=== PATIENT | female | born 1945 | race Caucasian/White ===

== ENCOUNTER 2017-07-18 16:24 | Emergency (ER) | payer OTHER ==
[~2017-07-18] VITALS: Ht 167.6 cm; Wt 90.7 kg
[~2017-07-18 16:24] MED LIST: ECOTRIN325 MG PO; HYDROCODONE-AP1 EAC6 PO; IRBESARTAN300 MG PO; LABETALOL HCL200 MG PO; LOSARTAN POTAS100 MG PO; NORVASC5 MG PO; PROTONIX40 M1 PO; SENNA8.6 MG PO; TOPROL XL100 MG PO; ZOLOFT50 MG PO
[2017-07-18 18:59] LABS: ABSOLUTE NEUTROPHILS 3.9 thou/uL (1.4-8.2); BASOPHILS 0.9 % (0.0-2.0); EOSINOPHILS 1.5 % (0.0-3.0); HEMATOCRIT 41.1 % (37.0-47.0); HEMOGLOBIN 13.8 gm/dL (12.0-15.0); LYMPHOCYTES 41.7 % (24.0-44.0); MCH 28.5 pg (26.0-34.0); MCHC 33.6 g/dL (28.0-37.0); MCV 84.6 fL (80.0-100.0); MONOCYTES 11.3 % (1.0-8.0); PLATELET COUNT 239 thou/uL (150-400); POLYS 44.6 % (36.0-66.0); RBC 4.86 mil/uL (4.20-5.00); WBC 8.8 thou/uL (4.0-11.0)
[2017-07-18 19:08] LABS: CALCIUM 9.7 mg/dL (8.5-10.1); CREATININE 1.2 mg/dL (0.6-1.0); POTASSIUM 3.3 mmol/L (3.5-5.1)
[2017-07-18 19:16] LABS: ALBUMIN 3.7 g/dL (3.4-5.0); TOTAL BILIRUBIN 0.3 mg/dL (<0.1-1.0); TOTAL PROTEIN 7.8 g/dL (6.4-8.2); TROPONIN-I 0.09 ng/mL (<0.06)
[2017-07-18 19:19] LABS: LARGE PLATELETS RARE
[2017-07-18] MEDS ORDERED: NORVASC5 MG PO (19:48)
[2017-07-18] MEDS ORDERED: KEFLEX500 M1 PO (19:48)
[2017-07-18] MEDS ORDERED: TOPROL XL100 MG PO (19:57)
[2017-07-18] MEDS ORDERED: VENTOLIN HFA INH8 GM INH (19:57)
[2017-07-18 20:28] VITALS: BP 193/102
== END 2017-07-18 20:30 | disposition home or self-care (01) ==
LOC: ER 16:24
PROVIDERS: Physician Assistant
DX: S91.312A Laceration without foreign body, left foot, initial encounter (principal); J40 Bronchitis, not specified as acute or chronic; I10 Essential (primary) hypertension; Z90.49 Acquired absence of other specified parts of digestive tract; Z90.710 Acquired absence of both cervix and uterus; W20.8XXA Other cause of strike by thrown, projected or falling object, initial encounter; Y93.89 Activity, other specified; Y92.89 Other specified places as the place of occurrence of the external cause; Y99.8 Other external cause status

== ENCOUNTER → 2017-08-14 | Outpatient (CLI) | payer OTHER ==
[~2017-08-14] MED LIST changes: +KEFLEX500 M1 PO; +VENTOLIN HFA INH8 GM INH
== END ==
LOC: CAT 06:59
DX: G31.9 Degenerative disease of nervous system, unspecified (principal)

== ENCOUNTER → 2018-06-03 | Outpatient (CLI) | payer OTHER | LOC: RAD 09:01 | DX: J92.9 Pleural plaque without asbestos (principal) ==

== ENCOUNTER → 2018-11-03 | Outpatient (CLI) | payer OTHER | LOC: RAD 09:23 | DX: M54.5 Low back pain (principal); I70.0 Atherosclerosis of aorta; Z96.641 Presence of right artificial hip joint; W19.XXXA Unspecified fall, initial encounter ==

== ENCOUNTER → 2018-12-15 | Outpatient (CLI) | payer OTHER | LOC: RAD 10:38 | DX: N63.10 Unspecified lump in the right breast, unspecified quadrant (principal); N63.20 Unspecified lump in the left breast, unspecified quadrant ==

== ENCOUNTER 2019-10-16 23:35 | Inpatient (IN) | payer OTHER ==
[~2019-10-16] VITALS: Ht 167.6 cm; Wt 119.1 kg
--- NOTE | ~2019-10-16 | EEG ---
[facility] [place] [address] ELECTROENCEPHALOGRAM Name: NEETA LAGUERRE Room #: 203-P [facility] IN M.R.#: [id number] Admission: 10/17/19 Attend Phys: Nilson Edmonds MD Discharge: Date of : 43 Report #: [id number] THIS REPORT FOR: //name// CC: Nilson Edmonds DATE OF SERVICE: 10/18/2019 This patient is being evaluated for the possibility of seizure. EEG was done by placing the electrodes by standard 10-20 system of electrode placement. Both referential and sequential montages were used for recording. Background activity in this patient's EEG is about 9 Hz and 30 microvolt. Photic stimulation is unremarkable. The patient became drowsy and that is associated with bilateral slowing and vertex sharp waves. Throughout the record, no active epileptiform activity was noticed. IMPRESSION: This patient's EEG does not demonstrate any active epileptiform activity. EEG does indicate mild intermixed slowing, which is a nonspecific finding, which can occur with drowsiness, dementia, effect of psychotropic medication, etc. Clinical correlation is recommended. By: 1421 1427 Blane Wright MD /nt
[2019-10-16 23:39] VITALS: BP 217/114
[2019-10-17] VITALS (22 sets, daily range): BP systolic 144–183; BP diastolic 48–104
[2019-10-17 00:05] LABS: ABSOLUTE NEUTROPHILS 7.1 thou/uL (1.4-8.2); BASOPHILS 0.8 % (0.0-2.0); EOSINOPHILS 0.5 % (0.0-3.0); HEMATOCRIT 45.4 % (37.0-47.0); HEMOGLOBIN 15.3 gm/dL (12.0-15.0); LYMPHOCYTES 19.5 % (24.0-44.0); MCH 28.9 pg (26.0-34.0); MCHC 33.6 g/dL (28.0-37.0); MCV 85.9 fL (80.0-100.0); MONOCYTES 3.8 % (1.0-8.0); PLATELET COUNT 246 thou/uL (150-400); POLYS 75.4 % (36.0-66.0); RBC 5.29 mil/uL (4.20-5.00); WBC 9.5 thou/uL (4.0-11.0)
[2019-10-17 00:21] LABS: APTT 24.7 Seconds (24.5-32.8); PROTIME 9.3 Seconds (9.3-11.4)
[2019-10-17 00:41] LABS: CALCIUM 8.8 mg/dL (8.5-10.1); CREATININE 1.3 mg/dL (0.6-1.0); POTASSIUM 3.7 mmol/L (3.5-5.1)
[2019-10-17 00:51] LABS: ALBUMIN 3.7 g/dL (3.4-5.0); TOTAL BILIRUBIN 0.6 mg/dL (<0.1-1.0); TOTAL PROTEIN 7.6 g/dL (6.4-8.2); TROPONIN-I 0.08 ng/mL (<0.06)
[2019-10-17] MEDS ORDERED: BYSTOLIC10 MG PO (01:05)
[2019-10-17 01:23] LABS: URINE BILIRUBIN NEGATIVE (Negative); URINE BLOOD NEGATIVE (Negative); URINE CLARITY CLEAR; URINE COLOR YELLOW; URINE GLUCOSE-RANDOM* TRACE (Negative); URINE KETONES NEGATIVE (Negative); URINE LEUKOCYTES-REFLEX NEGATIVE (Negative); URINE NITRITE-REFLEX NEGATIVE (Negative); URINE PROTEIN (DIPSTICK) TRACE (Negative); URINE SPECIFIC GRAVITY 1.015 (1.005-1.035)
--- NOTE | 2019-10-17 04:46 | NUR ---
ADM: PT ARRIVED FROM ED ARROUND 0300. ALERT AND ORIENTED. CARDENE GTT AT 1MG/HR. BP UPON ARRIVAL 169/90. OTHER VITALS STABLE. HELPED PT TRANSFER TO HER BED BY AMBULATION. NOTED EXTENSIVE WEAKNESS ESPECIALLY TO HER RIGHT SIDE. PT REPORTS HIGH REPLACEMENT TO THE RIGHT LEG, AND BOTH KNEE REPLACEMENTS. ALSO REPORTS OCCASIONAL NUMBNESS AND TINGLING IN THE RIGHT LEG. NOTED FECIAL DROOP AND SLURRED SPEECH, SCORING 5 ON NIH ASSESSMENT SCALE. ASSISTANT PROSECUTING ATTORNEY NOTIFIED ABOUT THE NIH SCORES, AND BP. PT STATES SHE WAS SO TIRED AND SLEEPY, COULDN'T SIGN CONSENT FORMS. SINUS ZACHARY ON THE MONITOR. DENIES CHEST PAIN OR SOB. MINIMAL NAUSEA DURING TRANSFER BUT NO VOMITING. DENIES PAIN. OTHER ASSESSMENTS DOCUMENTED. WILL CONTINUE TO MONITOR BP, ASSESS NIH SCORES PERIODICALLY. LIFETIME PARTNER MAYNOR VARMA UPDATED ABOUT PT STATE.
[2019-10-17 07:30] LABS: HEMATOCRIT 45.3 % (37.0-47.0); HEMOGLOBIN 14.8 gm/dL (12.0-15.0); MCH 28.4 pg (26.0-34.0); MCHC 32.7 g/dL (28.0-37.0); MCV 86.6 fL (80.0-100.0); RBC 5.23 mil/uL (4.20-5.00); RDW 14.2 % (10.5-14.5); WBC 9.2 thou/uL (4.0-11.0)
[2019-10-17 07:41] LABS: CALCIUM 8.8 mg/dL (8.5-10.1); CREATININE 1.1 mg/dL (0.6-1.0); POTASSIUM 3.8 mmol/L (3.5-5.1)
--- NOTE | 2019-10-17 10:22 | EKG ---
[facility] [place] [address] ELECTROCARDIOGRAM REPORT Name: NEETA LAGUERRE Room #: 203-P ADM IN M.R.#: [id number] Admission: 10/17/19 Attend Phys: Deven Wilson MD Discharge: Date of : 43 Report #: [id number] THIS REPORT FOR: cc: Nilson Edmonds MD, Neal A. MD Lundgren,Jonnathan Mcnamara MD [facility] ~ THIS REPORT FOR: //name// [facility] ED Test Date: 2019-10-16 Test Time: 23:57:33 Pat Name: NEETA LAGUERRE Department: Room: [facility] Gender: F Manager Of Software Development: RONNIE : 1945 Requested By: Nirmal Uribe Order Number: [id number] MD: Jonnathan Mendoza Measurements Intervals [place] Rate: 63 P: 33 IN: 134 QRS: 12 QRSD: 78 T: 15 QT: 445 QTc: 456 Interpretive Statements Sinus rhythm Early R wave progression No previous ECG available for comparison Electronically Signed On 10-17-2019 10:20:42 CDT by Jonnathan Mendoza [email or web address] <ELECTRONICALLY SIGNED> By: Jonnathan Mendoza MD, FACC 10/17/19 1020 [id number] [id number] Jonnathan Mendoza MD, [facility] /EPI
--- NOTE | 2019-10-17 19:11 | NUR ---
ASSUMMED PT CARE AT APPROXIMATELY 0700. PT A&O X4 AND DROWSY. ASSESSMENT CHARTED. FALL PRECAUTIONS IN PLACE. PT DENIES HAVING CHEST PAIN. PT DENIES HAVING SOB. PT STATED SHE HAD NAUSEA. PT RECEIVED ANTI-EMETICS. PT STATED ANTI-EMETICS HELPED RELIEVE NAUSEA. FOLLOWING CARDENE DRIP PROTOCOL. VITAL SIGNS STABLE. PT COMFORTABLE. ENCOURAGED PT TO EAT AND DRINK. PT HAS R HEMIPARESIS. EDUCATED PT ABOUT POC. PT STATED UNDERSTANDING AND DENIED HAVING FURTHER QUESTIONS. PT COMFORTABLE. PT DENIES HAVING FURTHER CONCERNS.
--- NOTE | 2019-10-18 02:59 | NUR ---
ASSESSMENTS CHARTED, MEDS GIVEN CHARTED. RESTING IN BED DURING SHIFT. SAYS SHE FEELS BETTER THAN YESTERDAY. RESIDUAL RIGHT SIDED WEAKNESS REMAINS FROM STROKE. BLOOD PRESSURE MAINTAINING WITHOUT IV DRIP SUPPORT. ALERT AND ORIENTED, SINUS ZACHARY ON TELEMETRY. ON 1 LITER NASAL CANULA. KHAN IN PLACE TO DEPENDENT DRAINAGE.
[2019-10-18 04:07] LABS: GLYCOHEMOGLOBIN (HGB A1C) 6.1 % (4.8-5.6)
[2019-10-18 05:25] VITALS: BP 156/84
[2019-10-18 06:03] LABS: HEMATOCRIT 43.1 % (37.0-47.0); HEMOGLOBIN 14.3 gm/dL (12.0-15.0); MCHC 33.2 g/dL (28.0-37.0); MCV 87.4 fL (80.0-100.0); RBC 4.93 mil/uL (4.20-5.00); RDW 14.2 % (10.5-14.5); WBC 10.9 thou/uL (4.0-11.0)
[2019-10-18 06:33] LABS: CALCIUM 8.7 mg/dL (8.5-10.1); CREATININE 1.2 mg/dL (0.6-1.0); POTASSIUM 3.3 mmol/L (3.5-5.1)
[2019-10-18 06:40] LABS: CHOLESTEROL 225 mg/dL (<200); HDL CHOLESTEROL 28 mg/dL (>40); LDL CHOLESTEROL 159 mg/dL (<100); TRIGLYCERIDE 193 mg/dL (<150); VLDL 39 mg/dL (<40)
[2019-10-18 06:59] LABS: SERUM ASSESSMENT Clear
[2019-10-18 08:30] VITALS: BP 147/80
[2019-10-18 11:20] VITALS: BP 166/77
--- NOTE | 2019-10-18 14:26 | 2DMMODE ---
[facility] [place] [address] 2 D/M-MODE ECHOCARDIOGRAM Name: NEETA LAGUERRE Room #: 203-P ADM IN M.R.#: [id number] Admission: 10/17/19 Attend Phys: Nilson Edmonds MD Discharge: Date of : 43 Report #: [id number] THIS REPORT FOR: cc: Nilson Edmonds MD, Neal A. MD Lammoglia, Francisco J. MD ~ ADDENDUM APPROVED REPORT Study performed: 10/18/2019 12:12:27 EXAM: Comprehensive 2D, Doppler, and color-flow Echocardiogram Patient Location: Bedside Room #: 203 Status: routine BSA: 2.21 HR: 50 bpm BP: 153/74 mmHg Rhythm: NSR Other Information Study Quality: Adequate Indications Hypertension/HDD Stroke Echo Enhancing Agent Indication: Rule out Shunt Agent(s) / Amount(s) Used: Agitated Saline 6 cc 2D Dimensions RVDd: 40.66 mm IVSd: 14.42 (7-11mm) LVOT Diam: 18.76 (18-24mm) LVDd: 51.22 mm PWd: 14.63 (7-11mm) Ascending Ao: 38.85 (22-36mm) LVDs: 41.11 (25-40mm) Aortic Root: 29.38 mm Volumes Left Atrial Volume (Systole) Single Plane 4CH: 73.94 mL Single Plane 2CH: 145.63 mL LA ESV Index: 54.00 mL/m2 Aortic Valve [facility] [place] [address] [place] [address] 2 D/M-MODE ECHOCARDIOGRAM Name: NEETA LAGUERRE Room #: 203-P [facility] IN ..#: [id number] Admission: 10/17/19 Attend Phys: Nilson Edmonds, Discharge: Date of : 43 Report #: [id number] AoV Peak Shun.: 2.04 m/s AO Peak Gr.: 16.71 mmHg LVOT Max P.06 mmHg AO Mean Gr.: 8.44 mmHg LVOT Mean P.04 mmHg AO V2 Mean: 1.35 m/s LVOT Max V: 1.33 m/s AO V2 VTI: 44.74 cm LVOT Mean V: 0.75 m/s NARINDER (VTI): 2.10 cm2 LVOT V1 VTI: 34.05 cm NARINDER Vmax: 1.80 cm2 SV (LVOT): 94.06 mL Mitral Valve E/A Ratio: 1.0 MV Decel. Time: 294.71 ms MV E Max Shun.: 1.03 m/s MV A Shun.: 1.02 m/s MV PHT: 85.47 ms IVRT: 50.75 ms Pulmonary Valve PV Peak Shun.: 0.85 m/s PV Peak Gr.: 2.91 mmHg Pulmonary Vein P Vein S: 0.46 m/s P Vein A: 0.36 m/s P Vein D: 0.32 m/s P Vein A Dur.: 115.3 msec P Vein S/D Ratio: 1.44 Tricuspid Valve TR Peak Shun.: 2.81 m/s TR Peak Gr.: 31.60 mmHg Left Ventricle The left ventricle is normal size. Moderate concentric left ventricular hypertrophy. The left ventricular systolic function is normal. The left ventricular ejection fraction is within the normal range. LVEF is 55-60%. Mild diastolic dysfunction is present (impaired relaxation pattern). Right Ventricle Right ventricle is at the upper limits of normal. The right ventricular systolic function is normal. Atria Left atrium is severely dilated. No shunting by contrast bubble injection. Right atrium is mildly dilated. Aortic Valve Aortic valve is mildly calcified. No aortic regurgitation is present. [facility] [address] [place] [address] 2 D/M-MODE ECHOCARDIOGRAM Name: NEETA LAGUERRE Room #: 203-P [facility] IN [facility]#: [id number] Admission: 10/17/19 Attend Phys: Nilson Edmonds, Discharge: Date of : 43 Report #: [id number] There is borderline valvular aortic stenosis. Calculated aortic valve area is 1.8 cm2 with maximum pressure gradient of 17 mmHg and mean pressure gradient of 8.4 mmHg. Mitral Valve Mild mitral annular calcification. Moderate mitral regurgitation. No evidence of mitral valve stenosis. Tricuspid Valve The tricuspid valve is normal in structure. Mild to moderate tricuspid regurgitation. PAP is estimated at 32 mHg + estimated RA pressure. Pulmonic Valve The pulmonary valve is normal in structure. There is no pulmonic valvular regurgitation. Great Vessels The aortic root is normal in size. IVC is not visualized. Pericardium There is no pericardial effusion. <Conclusion> The left ventricle is normal size. LVEF is 55-60%. Left atrium is severely dilated. Right atrium is mildly dilated. Aortic valve is mildly calcified. There is borderline valvular aortic stenosis. Calculated aortic valve area is 1.8 cm2 with maximum pressure gradient of 17 mmHg and mean pressure gradient of 8.4 mmHg. Mild mitral annular calcification. Moderate mitral regurgitation. The tricuspid valve is normal in structure. Mild to moderate tricuspid regurgitation. PAP is estimated at 32 mHg + estimated RA pressure. The aortic root is normal in size. There is no pericardial effusion. No shunting by contrast bubble injection. <ELECTRONICALLY SIGNED> By: Spencer Barone MD 10/18/19 1424 1424 1424 Spencer Barone MD /INF
[2019-10-18 15:50] VITALS: BP 153/69
--- NOTE | 2019-10-18 18:58 | NUR ---
ASSUMMED PT CARE AT APPROXIAOHELY 0700. PT A&O X4. ASSESSMENT CHARTED. FALL PRECAUTIONS IN PLACE. PT DENIES HAVING CHEST PAIN. PT DENIES HAVING SOB. PT DENIES HAVING ACUTE PAIN. PT STATED SHE HAD NAUSEA. PT RECEIVED ANTI-EMETICS. PT STATED ANTI-EMETICS HELPED RELIEVE NAUSEA. INFORMED DR. DOSHI OF PT'S HYPOKALEMIA, ELEVATED BUN, AND PT'S DARK URINE. DR. DOSHI ADDED NEW ORDERS. NEW ORDERS IMPLEMENTED. INFORMED DR. OH OF MRI RESULTS. DR. OH STATED UNDERSTANDING AND HAD NO NEW ORDERS. PT WORKED C PHYSICAL THERAPY. PT UP TO CHAIR THROUGHOUT SHIFT. PT IS A MODERATE ASSIST X 2. VITAL SIGNS STABLE. PT COMFORTABLE IN BED. PT DENIES HAVING FURTHER CONCERNS. EDUCATED PT AND PT'S FAMILY ABOUT POC. PT AND PT'S FAMILY STATED UNDERSTANDING AND DENIED HAVING FURTHER QUESTIONS. SEE NIH STROKE SCALE ASSESSMENT. PT MAINTAINS R SIDED WEAKNESS.
[2019-10-18 19:30] VITALS: BP 148/80
--- NOTE | 2019-10-19 03:05 | NUR ---
ASSESSMENTS CHARTED, MEDS GIVEN CHARTED. RESTING IN BED DURING SHIFT. PATIENT CONTINUES TO SCORE 7 ON NIH SCALE. RIGHT ARM AND LEG ARE STAYING ELEVATED LONGER AGAINST GRAVITY. KHAN IN PLACE TO GRAVITY. UP WITH ASSIST OF 2 PER PT. C/O RIGHT EAR ACHE AROUND 3. PLACE WARM CLOTH TO EAR. FALL PRECAUTIONS IN PLACE DURING SHIFT.
[2019-10-19 04:47] VITALS: BP 170/87
[2019-10-19 07:45] VITALS: BP 170/97
[2019-10-19 09:20] VITALS: BP 150/86
[2019-10-19] MEDS ORDERED: CLOPIDOGREL75 MG PO (10:51)
[2019-10-19] MEDS ORDERED: LIPITOR40 MG PO (10:51)
[2019-10-19] MEDS ORDERED: AMLODIPINE BESY10 MG PO (10:51)
[2019-10-19] MEDS ORDERED: K-DUR 20 MEQ T20 MEQ PO (10:52)
[2019-10-19] MEDS ORDERED: LISINOPRIL5 MG PO (10:52)
[2019-10-19] MEDS ORDERED: ADULT LOW DOSE81 MG PO (10:52)
[2019-10-19] MEDS ORDERED: ACETAMINOPHEN325 M1 PO (10:52)
[2019-10-19 11:55] VITALS: BP 153/72
--- NOTE | 2019-10-19 12:06 | NUR ---
Patient admits with CVA. Sp with patient by phone. RACE STEWARD patient independent with adls and self care. She lives in home with s/o and grandchildren, 5N rehab evaled and patient candidate for acute rehab however out of network with insurance. Referral to [facility] and [facility] for eval. Updated RN and phys. SP with S/O who was driving. Plan to call him later today.
--- NOTE | 2019-10-19 13:33 | NUR ---
FAXED REFERRAL TO [facility] SPOKE WITH ROBBIE IN ADM SHE RECEIVED REFERRAL AND CAN ACCEPT. FAXED REFERRAL TO [facility] AND SPOKE WITH FÁTIMA IN ADM SHE RECEIVED REFERRAL AND WILL REVIEW PT IS DC READY. DP TO FOLLOW.
[2019-10-19 15:45] VITALS: BP 162/80
--- NOTE | 2019-10-19 16:23 | NUR ---
SPOKE WITH FÁTIMA IN ADM SHE CAN ACCEPT PT FOR ACUTE REHAB FAXED DC ORDERS/SUMMARY TO FACILITY RECEIVED CONFIRMATION TRANSPORTATION ARRANGED BY [facility] FOR 1729 TODAY NOTIFIED PT'S S/O (AVANI) OF DC AND TIME OF TRANSPORT. [place] (DONNIE) WILL NOTIFY PT'S SON WHO LIVE OUT OF TOWN. UNIT NOTIFIED AND CHART COPY PER US. RN TO CALL REPORT TO [phone].
--- NOTE | 2019-10-19 16:23 | NUR ---
Spoke with patient son who lives in [place] . Patient reports fine to sp with him. Reviewed patient not a candidate for 5N due to insurance. referral to [facility] and [facility]. Son reports no preference and he doubts his mom with preference. Patient no preference. [facility] accepted and ins auth. Called son and left message patient dc to [facility] at 1730 and left number of facility. DC store planner updated s/o Uri.
--- NOTE | 2019-10-19 17:36 | NUR ---
Assumed care approx 0700. Assessments as charted and VSS. Tele monitor taken off of pt. IV d/c'd and german removed. Report called to Roseanne at [facility]. Receiving nurse denied questions/concerns regarding pt's POC or transfer. Case management notified pt's son. Pt and son denied questions/concerns regarding transfer. Transportation to pick-up approx 1730.
== END 2019-10-19 17:57 | DRG 65 ==
LOC: ER 23:35 → EROBS 10-17 01:29 → 2N 10-17 01:29
PROVIDERS: Emergency Medicine; Hospitalist; Nurse Practitioner Family; ADMIT Family Medicine
DX: I63.89 Other cerebral infarction (principal); G81.91 Hemiplegia, unspecified affecting right dominant side; G50.0 Trigeminal neuralgia; R29.810 Facial weakness; I16.0 Hypertensive urgency; E78.5 Hyperlipidemia, unspecified; M19.90 Unspecified osteoarthritis, unspecified site; M81.0 Age-related osteoporosis without current pathological fracture; Z90.710 Acquired absence of both cervix and uterus; Z90.49 Acquired absence of other specified parts of digestive tract; Z09 Encounter for follow-up examination after completed treatment for conditions other than malignant neoplasm; Z87.81 Personal history of (healed) traumatic fracture; Z88.7 Allergy status to serum and vaccine; Z79.82 Long term (current) use of aspirin; Z79.899 Other long term (current) drug therapy
CPT/HCPCS: 10081

== ENCOUNTER → 2020-02-15 | Outpatient (CLI) | payer OTHER ==
[~2020-02-15] MED LIST changes: +ACETAMINOPHEN325 M1 PO; +ADULT LOW DOSE81 MG PO; +AMLODIPINE BESY10 MG PO; +BYSTOLIC10 MG PO; +CLOPIDOGREL75 MG PO; +K-DUR 20 MEQ T20 MEQ PO; +LIPITOR40 MG PO; +LISINOPRIL5 MG PO
== END ==
LOC: BC 08:32 → ULTRA 09:00
PROVIDERS: ATTEND Nurse Practitioner
DX: N60.01 Solitary cyst of right breast (principal); N63.10 Unspecified lump in the right breast, unspecified quadrant